=== PATIENT | female | born 1935 | race Caucasian/White ===

== ENCOUNTER → 2018-01-07 | Outpatient (CLI) | payer MEDICARE, BC ==
[~2018-01-07] MED LIST: IOPAMIDOL 76% 75 ML INFUS BTL 75 ML ONE; NS 0.9% 20 ML SDV 40 ML ONE
--- NOTE | 2018-01-07 09:54 | RADIOLOGY IMAGING REPORT ---
FACILITY: [facility] PATIENT NAME: Aletha Carlin : 1935 MR: [id number] V: [id number] EXAM DATE: ORDERING PHYSICIAN: LEIGHA MCCURDY TECHNOLOGIST: Location: [facility] - [place] Patient: Aletha Carlin : 1935 Visit/Account:[id number] Date of Sevice: 01/07/2018 ABDOMEN/PELVIS WITH CONTRAST HISTORY: Right lower quadrant pain TECHNIQUE: CT abdomen and pelvis with intravenous contrast. Contiguous axial images of the abdomen and pelvis was performed from the lung bases to the symphysis pubis. One of the following dose optimization techniques was utilized in the performance of this exam: Autom ated exposure control; adjustment of the mA and/or kV according to the patient's size; or use of an i terative reconstruction technique. Specific details can be referenced in the facility's radiology C T exam operational policy. CONTRAST: 75 cc of Isovue-370 COMPARISON: None. FINDINGS: Visualized lung bases: 9 x 7 mm nodule left lower lobe is noted warrants additional evaluation. Hepatobiliary: There is fatty infiltration of liver. Benign cyst segment 8 of the liver measures 2.8 x 2 cm. Spleen: Negative. Adrenals: Negative. Kidneys/: Negative. Pancreas: Negative. GI: Appendix is normal. No evidence for bowel obstruction or focal inflammation. Vessels/spaces/nodes: Atherosclerotic calcifications noted. 1.4 x 1.6 cm low-density nodule anterio r to the right sacrum image 91 is noted of uncertain etiology. This is not clearly the ovary and coul d represent a lymphangioma, nerve sheath tumor or lymph node. In retrospect this finding was seen on the MRI lumbar spine from 2015 and is likely benign given stability. Bones/soft tissues: Infiltration of the subcutaneous tissues along the ventral abdominal wall may be from subcutaneous injections. Small umbilical hernia with fat in the defect is noted. Degenerative c hanges are noted in the spine. There appears to be at least mild spinal canal narrowing at L3-4 due to a disc protrusion and surrounding spondylitic change. Similar narrowing is noted at L4-5. Findings were described on prior MRI lumbar spine from 2015. IMPRESSION: 1. A source for acute pain is not forthcoming on the current study. The appendix is visualized and i s normal. No evidence for bowel obstruction or focal inflammation. 2. 9 x 7 mm nodule left lung base. Recommend dedicated chest CT for further evaluation. 3. 1.6 cm low-density well-circumscribed nodule anterior the right sacrum possibly a lymph node, nerv e sheath tumor or lymphangioma unchanged when compared to MRI from 2015. Stability implies a benign p rocess. Report Dictated By: Paul Guallpa MD at 01/07/2018 9:35 AM Report E-Signed By: Paul Guallpa MD at 01/07/2018 9:50 AM WSN:[id number]
== END ==
LOC: CT 00:39
PROVIDERS: ATTEND Nurse Practitioner Family
DX: K76.0 Fatty (change of) liver, not elsewhere classified (principal); K76.89 Other specified diseases of liver; I70.0 Atherosclerosis of aorta; K42.9 Umbilical hernia without obstruction or gangrene; R91.1 Solitary pulmonary nodule
CPT/HCPCS: 74177; J7050; Q9967

== ENCOUNTER → 2018-01-11 | Outpatient (CLI) | payer MEDICARE, BC ==
--- NOTE | 2018-01-11 16:22 | RADIOLOGY IMAGING REPORT ---
FACILITY: [facility] PATIENT NAME: Aletha Carlin : 1935 MR: [id number] V: [id number] EXAM DATE: ORDERING PHYSICIAN: LEIGHA MCCURDY TECHNOLOGIST: Location: [facility] - [place] Patient: Aletha Carlin : 1935 Visit/Account:[id number] Date of Sevice: 01/11/2018 CHEST W/O CONTRAST HISTORY: Pulmonary nodule TECHNIQUE: CT chest without intravenous contrast. Contiguous helical images was performed from the l terry apices to below the diaphragm. One of the following dose optimization techniques was utilized in the performance of this exam: Autom ated exposure control; adjustment of the mA and/or kV according to the patient's size; or use of an i terative reconstruction technique. Specific details can be referenced in the facility's radiology C T exam operational policy. CONTRAST: None. COMPARISON: CT abdomen 01/07/2018 FINDINGS: Heart/vessels: Atherosclerotic calcification of the coronary vessels and aortic valve is noted. Mediastinum: Negative. Lymph nodes: Small mediastinal lymph nodes are noted not enlarged by size criteria. Lungs/pleura: 10 x 7 mm left lower lobe nodule is noted on image 269. 5 x 2 mm right lower lobe nodules noted image 165. Scattered thin-walled cysts are noted in both lungs in an atypical pattern for emphysema. There is a lso mild central bronchiectasis. Visualized upper abdomen: 2.8 cm benign-appearing cyst in the dome of liver is noted Bones/soft tissues: Negative. IMPRESSION: 1. 10 x 7 mm left lower lobe pulmonary nodule and a 5 x 2 mm right lower lobe pulmonary nodule. Rec ommendations for follow-up are provided below. [employer] FOLLOW-UP GUIDELINES FOR NEWLY DETECTED INCIDENTAL NODULES IN PERSONS 35 YEARS OF AGE OR OLDER. *THESE RECOMMENDATIONS DO NOT APPLY TO LUNG CANCER SCREENING, PATIENTS WITH IMMUNOSUPPRESSION , OR PA TIENTS WITH KNOWN PRIMARY MALIGNANCY. MULTIPLE SOLID NODULES If largest nodule size is greater than 8 mm: Low risk patient - follow up CT at 3-6 months, then consider CT at 18-24 months High risk patient - follow up CT at 3-6 months, then at 18-24 months LOW RISK PATIENT: Minimal or absent history of tobacco use and of other known risk factors. HIGH RISK PATIENT: Tobacco use, family history of lung cancer, upper pulmonary lobe location of nodul e, presence of emphysema, pulmonary fibrosis, older age. Cristiana H, Nu DP, Keitho JM, et al. Guidelines for Management of Incidental Pulmonary Nodules Dete cted on CT Images: From the [employer] Society 2017. Radiology. PET/CT is also available for characterization. 2. Numerous thin-walled cysts scattered throughout both lungs in an atypical pattern for emphysema. There is also mild central bronchiectasis. Report Dictated By: Paul Guallpa MD at 01/11/2018 4:07 PM Report E-Signed By: Paul Guallpa MD at 01/11/2018 4:18 PM WSN:[email or web address]
== END ==
LOC: CT 14:43
PROVIDERS: ATTEND Nurse Practitioner Family
DX: R91.8 Other nonspecific abnormal finding of lung field (principal)
CPT/HCPCS: 71250

== ENCOUNTER → 2018-05-18 | Outpatient (CLI) | payer MEDICARE, BC ==
--- NOTE | 2018-05-18 10:04 | RADIOLOGY IMAGING REPORT ---
FACILITY: [facility] PATIENT NAME: Aletha Carlin : 1935 MR: [id number] V: [id number] EXAM DATE: ORDERING PHYSICIAN: MERCY NAQVI TECHNOLOGIST: [facility] Patient: Aletha Carlin : 1935 Visit/Account:[id number] Date of Sevice: 05/18/2018 CHEST W/O CONTRAST History: Lung nodule follow-up TECHNIQUE: Contiguous axial images were performed through the chest to the level of the adrenal gla nds. No IV contrast was administered. Coronal and sagittal reformatting was also performed. Dose Lowe ring Technique One of the following dose optimization techniques was utilized in the performance of this exam: Autom ated exposure control; adjustment of the mA and/or kV according to the patient's size; or use of an i terative reconstruction technique. Specific details can be referenced in the facility's radiology C T exam operational policy. COMPARISON STUDIES: January 11, 2018. Lungs / Pleura: 5 x 2 mm noncalcified right lower lobe pulmonary nodule appears unchanged best seen on image 175 of series 4. 10 x 7 mm noncalcified nodule posterior medial aspect left lower lobe also unchanged best seen on brett ge 296 no new pulmonary nodules are seen. Scattered thin-walled cysts are again noted in both lungs appearing similar to the prior study. Mild central peribronchial thickening also again noted Mediastinum/nodes: negative. Heart and vessels: Calcifications at the aortic root and in the coronary arteries similar to the aron or study Musculoskeletal / Body wall: Negative Upper abdomen: 2.9 cm cyst dome of the liver again seen IMPRESSION: The two bilateral pulmonary nodules appear stable For nodules this size in a low-risk patient (minima l or absent smoking history, no history of malignancy), a 3-6 month follow-up CT is recommended, then consider CT at 18-24 months. In a high risk patient, (smoking or malignancy history), a CT at 3-6 mo nths then at 18-24 months is recommended. Additional chronic findings as described Report Dictated By: Jazmin Bethea MD at 05/18/2018 9:50 AM Report E-Signed By: Jazmin Bethea MD at 05/18/2018 9:59 AM WSN:[email or web address]
== END ==
LOC: CT 01:06
PROVIDERS: ATTEND Internal Medicine
DX: R91.1 Solitary pulmonary nodule (principal)
CPT/HCPCS: 71250

== ENCOUNTER → 2018-06-17 | Outpatient (CLI) | payer MEDICARE, BC ==
[2018-06-17 16:29] LABS: PLATELET COUNT, AUTOMATED 255 K/uL (150-450)
--- NOTE | 2018-06-17 17:43 | RADIOLOGY IMAGING REPORT ---
FACILITY: [facility] - [place], [place] PATIENT NAME: Aletha Carlin : 1935 MR: [id number] V: [id number] EXAM DATE: ORDERING PHYSICIAN: LEIGHA MCCURDY TECHNOLOGIST: Location: [facility] - [place] Patient: Aletha Carlin : 1935 Visit/Account:[id number] Date of Sevice: 06/17/2018 ABDOMEN/PELVIS WITH CONTRAST HISTORY: Bilateral upper quadrant pain. TECHNIQUE: CT abdomen and pelvis with intravenous contrast. One of the following dose optimization techniques was utilized in the performance of this exam: Autom ated exposure control; adjustment of the mA and/or kV according to the patient's size; or use of an i terative reconstruction technique. Specific details can be referenced in the facility's radiology C T exam operational policy. CONTRAST: 75 mL Isovue-370 IV COMPARISON: 01/07/2018 FINDINGS: Visualized lung bases: Stable 7 x 9 mm (8mm average) noncalcified solid nodule medial left lung base princes 2/15). Also stable 3 mm noncalcified nodule posterior lateral right lung base (2/10). Trace right pleural fluid. Hepatobiliary: Stable benign-appearing cyst dome anterior segment right lobe. Spleen: Upper limits of normal in size but unchanged. Adrenals: Negative. Pancreas: Mildly atrophic. Kidneys/: Uterus surgically absent. GI: Very small sliding-type hiatal hernia. Small bowel unremarkable. Appendix well-visualized and ap pears normal. Sigmoid colon redundant. Vessels/spaces/nodes: Mild atherosclerosis. Circumaortic left renal vein, normal variant. No adenopa thy. No free gas. Trace free pelvic fluid (). Bones/soft tissues: Disc and facet degenerative changes lumbar spine. Partial sacralization L5 on th e right. Very small fat-containing umbilical hernia. IMPRESSION: 1. No findings identified to explain patient's reported bilateral upper quadrant pain. 2. Trace right pleural fluid and pelvic ascites, abnormal but nonspecific and new from prior exam. Co rrelation with any recent IV hydration suggested. 3. Stable 8 mm left lung base nodule, unchanged since 12/2017. Chest CT follow-up in 9-month recommend ed. 4. Other chronic and/or benign-appearing changes detailed above. Report Dictated By: Isak Lu MD at 06/17/2018 5:15 PM Report E-Signed By: Isak Lu MD at 06/17/2018 5:41 PM WSN:[id number]
== END ==
LOC: LAB 15:43
PROVIDERS: ATTEND Nurse Practitioner Family
DX: R91.8 Other nonspecific abnormal finding of lung field (principal); K86.89 Other specified diseases of pancreas; Z90.710 Acquired absence of both cervix and uterus; K44.9 Diaphragmatic hernia without obstruction or gangrene; I25.10 Atherosclerotic heart disease of native coronary artery without angina pectoris
CPT/HCPCS: 36415; 74177; 81001; 82040; 82247; 82310; 82374; 82435; 82565; 82947; 84075; 84132; 84155; 84295; 84450; 84460; 84520; 85025

== ENCOUNTER → 2018-12-24 | Outpatient (CLI) | payer MEDICARE, BC ==
[~2018-12-24] MED LIST changes: +DENOSUMAB 60 MG/1 ML SYR SUBQ ONE; -IOPAMIDOL 76% 75 ML INFUS BTL 75 ML ONE; -NS 0.9% 20 ML SDV 40 ML ONE
[2018-12-24 10:03] VITALS: BP 133/66
== END ==
LOC: SPU 09:12
PROVIDERS: ATTEND Nurse Practitioner Family
DX: M81.0 Age-related osteoporosis without current pathological fracture (principal); M85.89 Other specified disorders of bone density and structure, multiple sites
CPT/HCPCS: 96372; J0897

== ENCOUNTER → 2019-06-23 | Outpatient (CLI) | payer MEDICARE, BC ==
[2018-12-24 10:03] VITALS: BP 133/66
== END ==
LOC: SPU 14:44
PROVIDERS: ATTEND Nurse Practitioner Family
DX: M81.0 Age-related osteoporosis without current pathological fracture (principal)

== ENCOUNTER → 2019-06-24 | Outpatient (CLI) | payer MEDICARE, BC | LOC: SPU 08:45 | PROVIDERS: ATTEND Nurse Practitioner Family | DX: M81.0 Age-related osteoporosis without current pathological fracture (principal); M85.89 Other specified disorders of bone density and structure, multiple sites | CPT/HCPCS: 96372; J0897 ==

== ENCOUNTER → 2019-07-19 | Outpatient (CLI) | payer MEDICARE, BC ==
[2019-07-19 10:44] VITALS: BP 135/56
== END ==
LOC: SPU 08:12
PROVIDERS: ATTEND Nurse Practitioner Family
DX: M81.0 Age-related osteoporosis without current pathological fracture (principal); M84.352 Stress fracture, left femur
CPT/HCPCS: 96372; J0897